=== PATIENT | male | born 1965 | race Caucasian/White ===

== ENCOUNTER 2017-10-12 17:32 | Emergency (ER) | payer MEDICAID, OTHER ==
[2017-10-12 17:35] VITALS: BP 132/88; PULSE 94; RESP 16; TEMP 98.1; O2SAT 96
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
[2017-10-12] MEDS ORDERED: Tdap Vaccine 0.5 ml Vial (10-64 yrs) IM ONE ×2 (17:56→18:36)
[2017-10-12] MEDS ORDERED: Lidocaine 2% Inj (20ml) SC STA (17:56)
[2017-10-12] MEDS ORDERED: Lidocaine 2% Inj (20ml) ONE (17:57)
== END 2017-10-12 19:01 | disposition home or self-care (01) ==
LOC: H.ER 17:32
DX: S61.011A Laceration without foreign body of right thumb without damage to nail, initial encounter (principal); W26.8XXA Contact with other sharp object(s), not elsewhere classified, initial encounter; Y92.89 Other specified places as the place of occurrence of the external cause; I10 Essential (primary) hypertension; I48.91 Unspecified atrial fibrillation; J45.909 Unspecified asthma, uncomplicated; Z88.0 Allergy status to penicillin

== ENCOUNTER 2017-10-22 12:13 | Emergency (ER) | payer MEDICAID ==
[2017-10-22 12:29] VITALS: BP 139/77; RESP 20; TEMP 98.2; O2SAT 98
[2017-10-22 12:30] VITALS: BMI 23.7
[2017-10-22 12:32] VITALS: PULSE 80
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
== END 2017-10-22 14:57 | disposition home or self-care (01) ==
LOC: H.ER 12:13
DX: Z48.02 Encounter for removal of sutures (principal); I10 Essential (primary) hypertension; J45.909 Unspecified asthma, uncomplicated; Z88.0 Allergy status to penicillin